=== PATIENT | male | born 1965 | race Caucasian/White ===

== ENCOUNTER 2017-03-27 15:00 | Inpatient (IN) | payer OTHER ==
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
--- NOTE | ~2017-03-27 | HP ---
Unit #: [id number] #: [id number] Patient: YOUSUF GOLD [id number] [place] [address] [id number] I MR#: [id number] NAME: YOUSUF GODL ROOM: P176 Age: 51 Sex: M Admission Date: 03/27/2017 : 1965 Attending Physician: Abdullahi Jacobo M.D. Admitting Physician: Abdullahi Jacobo M.D. Primary Care Physician: Generic Doctor Not In System HISTORY AND PHYSICAL HISTORY OF PRESENT ILLNESS Yousuf is a 51 year old admitted to [facility] because of his abuse of alcohol. PAST MEDICAL HISTORY 1. Long history of alcohol abuse. 2. High blood pressure. 3. Osteoarthritis. 4. History of gout. PAST SURGICAL HISTORY Nothing reported. ALLERGIES Diclofenac (swelling). SOCIAL HISTORY He dips a can of snuff a day. Drinks at least a fifth of liquor on a daily basis. Denies illicit drug use. FAMILY HISTORY Medically noncontributory. REVIEW OF SYSTEMS CONSTITUTIONAL: No fever or chills. HEENT: Denies any sore throat, ear pain or runny nose. CARDIOVASCULAR: Denies chest pain, irregular heart rhythm or palpitations. CHEST: Denies shortness of breath or cough. No hemoptysis. GASTROINTESTINAL: Denies nausea, vomiting, diarrhea or chronic constipation. ENDOCRINE: Denies history of increased thirst or urination. No recent significant weight loss or gain. GENITOURINARY: Denies dysuria, frequency, or hematuria. SKIN: He does report a laceration along his right thumb 1 week ago. Sutures were placed. He has no complaints. HEMATOLOGIC: Denies history of increased bleeding or bruising. MUSCULOSKELETAL: Denies any hot, swollen joints. No generalized muscle pain. NEUROLOGIC: Denies problems with vision or speech. No frequent, severe headaches. No numbness, tingling or weakness in any extremities. Denies loss of bladder or bowel control. CURRENT MEDICATIONS Detox protocol. Unit #: [id number] #: [id number] Patient: YOUSUF GOLD PHYSICAL EXAMINATION GENERAL: Alert, well-nourished, in no apparent distress. VITAL SIGNS: Blood pressure 180/100, heart rate 82, respirations 16, temperature 98.6. WEIGHT: 170. HEIGHT: 5 feet 10 inches. SKIN: Warm and dry without rash. He has sutures along his right thumb. There is poor skin approximation but the area is healed. There is no increased redness, swelling, heat or pus noted. HEENT: Normocephalic. TMs not viewed. Oral and nasal passages clear. Conjunctivae clear. PERRLA. EOMs intact. NECK: Supple without lymphadenopathy or thyromegaly. HEART: Regular rate and rhythm without murmur. LUNGS: Clear. ABDOMEN: Soft, nontender. : Not done. EXTREMITIES: No evidence of cyanosis, clubbing or edema. Moves all without focal deficit. NEUROLOGICAL: Grossly within normal limits. Cranial Nerves: II: Visual rockwell are intact. III, IV AND : Extraocular movements are intact. Pupils are equal, round and reactive to light. V: Facial sensation is grossly normal. VII: Facial movements and expression are normal. VIII: Auditory acuity grossly intact. IX, X: Uvula is midline. Phonation is normal. XI: Patient shrugs shoulders and turns head normally. XII: Tongue protrudes in the midline. Sensory and Motor Function: Sensory and motor sensation is grossly normal. Motor: moves all extremities well. Coordination: Gait is normal. Deep Tendon Reflexes: Intact. IMPRESSION Psychiatric admission. RECOMMENDATIONS PSYCHIATRIC: Per psychiatrist. MEDICAL: 1. See no contraindications to participate in facility's activities. 2. Remove sutures in his right thumb. Dictated by... Katelynn Oleary P.A.-C. for Iliana De La Cruz/dillon TD: 03/28/2017 19:36 JOB #: [id number] Unit #: [id number] #: [id number] Patient: YOUSUF GOLD HISTORY AND PHYSICAL Page 1 of 1 X Katelynn Oleary HISTORY AND PHYSICAL
--- NOTE | ~2017-03-27 | CO ---
Unit #: [id number] #: [id number] Patient: YOUSUF GOLD [id number] [place] [address] [id number] MR#: [id number] NAME: YOUSUF GOLD ROOM: P176 Age: 51 Sex: M Admission Date: 03/27/2017 : 1965 Attending Physician: Abdullahi Jacobo M.D. Primary Care Physician: Generic Doctor Not In System Consultation Date: 03/28/2017 CONSULTATION REPORT JOB NOTE: DICTATOR FOR NOT DICTATED Yousuf is a 51-year-old who was admitted with stitches in his thumb. This area was examined and described under his admission H and P dated 03/28/2017. Please see H and P dated 03/28/2017. Dictated by... Katelynn Oleary P.A.-C. for Iliana De La Cruz/melita TD: 04/09/2017 23:10 JOB #: [id number] CONSULTATION REPORT Page 1 of 1 X Katelynn Oleary CONSULTATION REPORT
--- NOTE | ~2017-03-27 | PN ---
Unit #: [id number] #: [id number] Patient: KEVIN GOLD [id number] [facility] [address] [place] [address] [id number] I MR#: [id number] NAME: KEVIN GOLD ROOM: P176 Age: 51 Sex: M Admission Date: 03/27/2017 : 1965 Attending Physician: Abdullahi Jacobo M.D. Admitting Physician: Abdullahi Jacobo M.D. Primary Care Physician: Cayla Doctor Not In System MERGED WITH [facility] PROGRESS NOTES DATE 03/30/2017 DISCUSSION Upon today's assessment, the patient reports that he is feeling better, still with slight tremor. He reports that he has been feeling much better and has minimal signs of signs and symptoms of detox at this time. He reports that hopes to speak with Dr. Jacobo tomorrow, Friday, and would like a discharge at that time and feels that he is ready. MENTAL STATUS EXAMINATION At this time, reveals a 51-year-old male who was casually dressed with fair personal hygiene. He is oriented and alert to person, place, time, date and situation. His mood is slightly anxious with a congruent affect. Speech is relevant, coherent with a normal tone and rate. Thought processes are logical and goal-directed. Denies suicidal/homicidal ideation. He denies auditory, visual hallucinations and no overt symptoms of psychosis was noted at this time. His memory and intellectual functioning are grossly intact. His judgement and insight are slightly impaired. Sleep and appetite, he reports as adequate and denies any signs or symptoms of side effects from the medications at this time. We will continue to monitor this patient with the [facility] base protocol with CIWA assessment and vital signs q 4 hours as well as provide comfort medications to the patient as needed. We will continue to encourage the patient to integrate within the therapeutic milieu and to attend groups and programming. Anticipated discharge most likely tomorrow, Friday. Dictated by... FRANCISCO Dominguez/dillon TD: 04/01/2017 15:27 JOB #: [id number] Unit #: [id number] #: [id number] Patient: KEVIN GOLD [facility] NOTES Page 1 of 1 X SAUNDRA SMART
--- NOTE | ~2017-03-27 | PN ---
Unit #: [id number] #: [id number] Patient: KEVIN GOLD [id number] [facility] [address] [place] [address] [id number] MR#: [id number] NAME: KEVIN GOLD ROOM: P176 Age: 51 Sex: M Admission Date: 03/27/2017 : 1965 Attending Physician: Abdullahi Jacobo M.D. Admitting Physician: Abdullahi Jacobo M.D. Primary Care Physician: Cayla Doctor Not In System [facility] PROGRESS NOTES DATE This patient was seen and evaluated on 03/29/2017. DISCUSSION Upon today's assessment, this patient was found sitting in the day room interacting with other peers. He is a 51-year-old male. At this time, he complains of symptoms of gout in his large right thumb and great toe. A medical consult was ordered. He reports mild signs and symptoms of detox at this time which is slight tremor and slight elevated levels of anxiety and irritability. He denies any nausea or vomiting. He reports his mood as good. Mental status at this time reveals a 51-year-old male who is causally dressed with fair personal hygiene. He is alert and oriented to person, place, time, date, and situation. Mood is slightly anxious with a congruent affect. His speech was relevant, coherent, with a normal rate and tone. Thought processes were goal-directed and logical. He denies suicidal or homicidal ideation at this time. He denies any auditory or visual hallucinations and no overt symptoms of psychosis was noted. Memory and intellectual functional are grossly intact. His judgment and insight appear limited. He reports hypersomnia and adequate appetite at this time and denies any side effects to any medications. At this time, we will continue to monitor him on the based protocol with a assessment and vital signs q.4 hours. We will continue to provide p.r.n. comfort medications as needed as well as encourage participation in therapeutic milleu and with groups and programming. Dictated by... FRANCISCO Dominguez TD: 04/01/2017 10:21 JOB #: [id number] Unit #: [id number] #: [id number] Patient: KEVIN GOLD PROGRESS NOTES Page 1 of 1 X SAUNDRA SMART Michael R MD PROGRESS NOTE
--- NOTE | ~2017-03-27 | DS ---
Unit #: [id number] #: [id number] Patient: KEVIN GOLD [id number] [place] [address] [id number] MR#: [id number] NAME: KEVIN GOLD ROOM: P176 Age: 51 Sex: M Admission Date: 03/27/2017 : 1965 Discharge Date: 03/31/2017 Attending Physician: Abdullahi Jacobo M.D. Primary Care Physician: Generic Doctor Not In System DISCHARGE SUMMARY REASON FOR ADMISSION Mr. Valles is a 51-year-old man, admitted for drinking up to half a gallon of vodka daily and occasionally using cocaine. He had no suicidal ideation, intent, or plan and was admitted for detox. DIAGNOSTIC STUDIES LABORATORY RESULTS: Please see hospital chart. HOSPITAL COURSE The patient was admitted and placed on the alcohol detox protocol. He has several medical conditions remain untreated, but these were nonacute and he was referred to his primary care doctor after discharge for further treatment. Sutures were removed from his thumb due to a recent injury. He had no withdrawal seizures and no evidence of delirium. He remained free of suicidal ideation throughout his hospitalization and was able to contract for safety on the date of discharge. DISCHARGE DIAGNOSES AXIS I: Alcohol dependence with withdrawal, uncomplicated. AXIS II: No diagnosis. AXIS III: Hypertension, gout, recent thumb injury. AXIS IV: AXIS V: DISCHARGE INSTRUCTIONS Follow up with AA and primary care physician. DISCHARGE MEDICATIONS None. CONDITION AT DISCHARGE Improved. PROGNOSIS Fair to good if the patient maintains sobriety and followup. DIET AND ACTIVITY Ad mega. Dictated by... Abdullahi Jacobo M.D. Unit #: [id number] #: [id number] Patient: KEVIN GOLD MRH/modl TD: 04/01/2017 09:21 JOB #: [id number] DISCHARGE SUMMARY Page 1 of 1 X Abdullahi Jacobo MD X DISCHARGE SUMMARY
== END 2017-03-31 12:50 | disposition home or self-care (01) | DRG 897 ==
LOC: P1E 19:22
PROC: HZ2ZZZZ Detoxification Services for Substance Abuse Treatment (ICD-10-PCS; principal; 2017-03-27)
DX: F10.230 Alcohol dependence with withdrawal, uncomplicated (principal); I10 Essential (primary) hypertension; M19.90 Unspecified osteoarthritis, unspecified site; M10.9 Gout, unspecified; F17.290 Nicotine dependence, other tobacco product, uncomplicated

== ENCOUNTER 2017-04-22 17:38 | Inpatient (IN) | payer OTHER ==
--- NOTE | ~2017-04-22 | A ---
[facility] Nutrition Therapy DATE: 04/23/17 Patient: KEVIN GOLD Physician: SHELBI Address: [address] [place] [address] Room/Bed: [address], Zip: [place] [address] Admit Date: 04/22/17 Date of : [birth year] Height: 5 10 Weight: [id number] NUTRITIONAL ASSESSMENT: REASON: UNINTENTIONAL WEIGHT LOSS PATIENT ADMITTED FOR ETOH DETOX PMH: ARTHRITIS, ASTHMA, HTN Anthropometrics: HT: 70", WT: 154#, BMI: 22.1 Labs: 04/23/17- GLU: 115 Meds: DESYREL, DETOX PROTOCOL Assessment: PATIENT IS A 51 Y/O MALE ADMITTED FOR ETOH DETOX. PATIENT WAS DISCHARGED ON 03/31/17 FROM THIS FACILITY FOR THE SAME. PATIENT IS CURRENTLY UNEMPLOYED, LIVES WITH HIS MOTHER, AND HE HAS BEEN DRINKING 2 FIFTHS OF ETOH DAILY FOR THE LAST 3 WEEKS. PER NEEDS ASSESSMENT PATIENT STATED A POOR APPETITE WITH A 10# WEIGHT LOSS IN THE LAST SEVERAL WEEKS, AND HE HAS BEEN SLEEPING AN AVERAGE OF 2 HOURS/NIGHT. PATIENT'S WEIGHT LOSS SEEMS TO CONINCIDE WITH HIS ETOH ABUSE. THERE ARE NO SKIN OR GI ISSUES NOTED ATT. PATIENT IS ON A REGULAR DIET WITH NO CAFFEINE. THIS RD SUSPECTS PATIENT'S WEIGHT AND APPETITE WILL STABILIZE AND POSSIBLY INCREASE FOLLOWING DETOX. Dx: UNINTENTIONAL WEIGHT LOSS R/T CURRENT CONDITION, DETOX AEB SELF-REPORTED WEIGHT LOSS AND DECREASED APPETITE, NUTRITIONAL RISK POINT Intervention: REGULAR DIET, MEDS PER MD, DETOX, PSYCH Monitoring, Evaluation and Goals: 1. ADEQUATE PO INTAKES >50% OF MEALS 2. PREVENT, CORRECT MICRO/MACRO NUTRIENT DEFICIENCIES MONITOR: WEIGHTS, LABS, PO/FLUID INTAKES Recommendations: 1. CONTINUE REGULAR DIET WITH NO CAFFEINE TOLERATED 2. ENCOURAGE ADEQUATE PO AND FLUID INTAKES 3. IF PO INTAKES FALL BELOW 50% OF MEALS PLEASE ORDER ENSURE BID TO PROMOTE ADEQUATE KCAL AND PROTEIN INTAKES RD TO F/U PER PROTOCOL AND PRN R/T PATIENT MILDLY COMPROMISED [facility] Nutrition Therapy DATE: 04/23/17 Patient: KEVIN GOLD Physician: SHELBI Address: [address] [facility] Room/Bed: [address], Zip: [place] [address] Admit Date: 04/22/17 Date of : [birth year] Height: 5 10 Weight: [phone] Respectfully, GIOVANY PICKENS RD, LD Food and Nutritional Services [facility] cc: client file
--- NOTE | ~2017-04-22 | PA ---
Unit #: [id number] #: [id number] Patient: KEVIN GOLD [id number] [place] [address] [id number] MR#: [id number] NAME: KEVIN GOLD ROOM: P208 Age: 51 Sex: M Admission Date: 04/22/2017 : 1965 Date of Assessment: Attending Physician: Abdullahi Jacobo M.D. Admitting Physician: Abdullahi Jacobo M.D. Primary Care Physician: Primary Care Physician No PSYCHIATRIC ASSESSMENT DATE OF SERVICE 04/23/2017. INFORMANTS The patient, reliable; [facility], reliable. CHIEF COMPLAINT Alcohol dependence. HISTORY OF PRESENT ILLNESS Mr. Godl is a 51-year-old man with a long history of alcohol dependence. He was discharged from this hospital earlier this month, but apparently relapsed soon after and returns for further episode of alcohol detox in the context of a history of withdrawal seizures. PAST PSYCHIATRIC HISTORY Please see previous assessments. FAMILY PSYCHIATRIC HISTORY The patient's father was an alcoholic. SOCIAL HISTORY Please see previous assessments for social history, which is unchanged. PAST MEDICAL HISTORY Alcohol withdrawal seizures, asthma, hypertension, and gout. MEDICATIONS None currently. ALLERGIES Voltaren and nuts. SUBSTANCE ABUSE HISTORY As noted above. MENTAL STATUS EXAMINATION The patient presented as a disheveled man, appearing older than his stated age. His speech was easily understood. His mood was anxious and depressed with a congruent affect. He was alert and fully oriented. Memory and concentration were fair. Thought processes were goal directed with no psychosis. He had no suicidal ideation, intent, or plan. No homicidal ideation. Unit #: [id number] #: [id number] Patient: KEVIN GOLD ASSETS AND LIABILITIES The patient is generally healthy and presents voluntarily for treatment. Liabilities include frequent relapse. ADMITTING DIAGNOSES AXIS I: Alcohol dependence with withdrawal. AXIS II: No diagnosis. AXIS III: Hypertension, gout, osteoarthritis, and recent thumb injury. AXIS IV: AXIS V: PSYCHIATRIC PLAN The patient was admitted and placed on the alcohol detox protocol. Physical examination and laboratory studies will be repeated as indicated. TREATMENT GOALS Establishment of sobriety, improvement in insight, and improvement in coping skills. DISCHARGE PLANNING Follow up with chemical dependency program of the patient's choice. ESTIMATED LENGTH OF STAY 5 days. Dictated by... Iliana Kirby/melita TD: 05/09/2017 13:51 JOB #: [id number] PSYCHIATRIC ASSESSMENT Page 1 of 1 X Abdullahi Jacobo MD X PSYCHIATRIC ASSESSMENT
--- NOTE | ~2017-04-22 | DS ---
Unit #: [id number] #: [id number] Patient: KEVIN GOLD [id number] [place] [address] [id number] MR#: [id number] NAME: KEVIN GOLD ROOM: P208 Age: 51 Sex: M Admission Date: 04/22/2017 : 1965 Discharge Date: 04/25/2017 Attending Physician: Abdullahi Jacobo M.D. Primary Care Physician: Primary Care Physician No DISCHARGE SUMMARY REASON FOR ADMISSION Alysha is a 51-year-old man with a history of alcohol dependence, who was discharged from this hospital earlier this month, but relapsed soon thereafter, he returned reporting increasing alcohol detox symptoms and the need for further treatment. DIAGNOSTIC STUDIES LABORATORY RESULTS: Please see hospital chart. HOSPITAL COURSE The patient was readmitted and placed on the alcohol detox protocol. Indocin was continued from his primary care physician. He had no significant adverse side effects from his detox and such as delirium, confusion, or disorientation. He had no suicidal ideation, intent, or plan and was able to contract for safety on the date of discharge. DISCHARGE DIAGNOSES AXIS I: Alcohol dependence with withdrawal. AXIS II: No diagnosis. AXIS III: Chronic pain. AXIS IV: AXIS V: DISCHARGE INSTRUCTIONS Follow up with [facility]. DISCHARGE MEDICATIONS Indocin 25 mg b.i.d. p.r.n. for pain. CONDITION AT DISCHARGE Fair. PROGNOSIS Fair. DIET AND ACTIVITY Ad mega. Dictated by... Abdullahi Jacobo M.D. Unit #: [id number] #: [id number] Patient: KEVIN GOLD MRH/modl TD: 05/09/2017 07:34 JOB #: [id number] DISCHARGE SUMMARY Page 1 of 1 X Abdullahi Jacobo MD X DISCHARGE SUMMARY
--- NOTE | ~2017-04-22 | HP ---
Unit #: [id number] #: [id number] Patient: YOUSUF GOLD [id number] [place] [address] [id number] I MR#: [id number] NAME: YOUSUF GOLD ROOM: P209 Age: 51 Sex: M Admission Date: 04/22/2017 : 1965 Attending Physician: Abdullahi Jacobo M.D. Admitting Physician: Abdullahi Jacobo M.D. Primary Care Physician: Primary Care Physician No HISTORY AND PHYSICAL Yousuf is a 51 year old admitted to [address] [place] [address] because of his continued abuse of alcohol. Patient was seen and H and P dated 03/28/17 was reviewed. This is current. No changes. Please see H and P dated 03/28/17. Dictated by... Katelynn Oleary P.A.-C. for Iliana De La Cruz/dillon TD: 04/23/2017 15:55 JOB #: [id number] HISTORY AND PHYSICAL Page 1 of 1 X Katelynn Oleary HISTORY AND PHYSICAL
[2017-04-23 09:44] LABS: BASOPHIL% 0.3 % (0-2.5); EOSINOPHIL# 0.1 X10e3 (0-0.7); EOSINOPHIL% 2.1 % (0.0-7.0); HEMATOCRIT 42.7 % (38.0-50.0); HEMOGLOBIN 14.2 gm/dL (13.0-16.0); LYMPHOCYTE# 0.4 X10e3 (1.0-3.5); LYMPHOCYTE% 10.3 % (17.0-45.0); MEAN CELL VOLUME 93.5 FL (83-96); MEAN CORPUSCULAR HGB CONC 33.2 g/dL (30-36); MEAN PLATELET VOLUME 7.3 FL (6.5-11.5); MONOCYTE# 0.5 X10e3 (0-1.0); MONOCYTE% 11.2 % (3.0-12.0); NEUTROPHIL# 3.3 X10e3 (1.5-7.1); NEUTROPHIL% 76.1 % (40-75); PLATELET COUNT 171 X10e3 (140-420); RED BLOOD COUNT 4.57 X10e (3.90-5.60); RED CELL DISTRIBUTION WIDTH 14.8 % (11.0-15.5); WHITE BLOOD COUNT 4.3 X10e3 (4.0-10.5)
[2017-04-23 09:52] LABS: ALBUMIN SERUM 3.9 g/dL (3.5-5.0); BILIRUBIN,TOTAL 0.8 mg/dL (0.2-2.0); BUN/CREATININE RATIO 12.5; CALCIUM SERUM 9.1 mg/dL (8.4-10.2); CREATININE SERUM 0.8 mg/dL (0.6-1.4); GLOM FILT RATE Estimated 103.5 mL/min (>60); POTASSIUM 4.1 mmol/L (3.5-5.1); PROTEIN TOTAL SERUM 6.6 g/dL (6.0-8.3)
[2017-04-23 09:54] LABS: DIFF IND NO
== END 2017-04-25 13:45 | disposition home or self-care (01) | DRG 897 ==
LOC: P2S 20:40
PROVIDERS: Psychiatry & Neurology Psychiatry
PROC: HZ2ZZZZ Detoxification Services for Substance Abuse Treatment (ICD-10-PCS; principal; 2017-04-22)
DX: F10.239 Alcohol dependence with withdrawal, unspecified (principal); I10 Essential (primary) hypertension; M19.90 Unspecified osteoarthritis, unspecified site; J45.909 Unspecified asthma, uncomplicated; M10.9 Gout, unspecified
CPT/HCPCS: 80053; 85025; 86592